=== PATIENT | female | born 1990 | race African-American/Black ===

== ENCOUNTER 2017-01-26 09:40 | Inpatient (IN) | payer MEDICAID, OTHER ==
[~2017-01-26] VITALS: Ht 162.6 cm; Wt 50.3 kg
[~2017-01-26 09:40] MED LIST: DEPO SHOT
[2017-01-26] MEDS ORDERED: LORazepam 2 MG/ML VIAL ONE (09:47)
[2017-01-26] MEDS ORDERED: DiphenhydrAMINE HCL 50 MG/ML VIAL ONE (09:47)
[2017-01-26] MEDS ORDERED: HALOPERIDOL LACTATE 5 MG/ML VIAL ONE (09:47)
[2017-01-26 09:58] LABS: EOSINOPHILS % (AUTO) 0.02 % (1.0-6.0); HEMATOCRIT 36.1 % (36-46); HEMOGLOBIN 12.3 g/dL (12.0-16.0); LYMPHOCYTES # (AUTO) 0.7 K/uL (1.0-4.8); LYMPHOCYTES % (AUTO) 5.2 % (22.0-44.0); MEAN CORPUSCULAR HEMOGLOBIN 28.2 pg (26.0-34.0); MEAN CORPUSCULAR VOLUME 83 fL (80-100); MONOCYTES # (AUTO) 0.7 K/uL (0.1-1.0); NEUTROPHILS # (AUTO) 11.9 K/uL (1.8-7.7); PLATELET COUNT (AUTO) 267 K/uL (150-450); RED BLOOD CELL COUNT(AUTO) 4.36 MIL/uL (4.00-5.20); RED CELL DISTRIBUTION WIDTH 12.9 % (11.5-14.5); WHITE BLOOD COUNT (AUTO) 13.3 K/uL (4.5-11.0)
[2017-01-26 10:00] LABS: NEUTROPHILS % (AUTO) 89.7 % (40.0-70.0)
[2017-01-26 10:11] LABS: ANION GAP 16 mmol/L (8-16); CALCIUM, TOTAL 9.6 mg/dL (8.8-10.5); CARBON DIOXIDE 23 mmol/L (22-29); CHLORIDE 103 mmol/L (98-107); CREATININE 1.12 mg/dL (0.60-1.30); GLOMERULAR FILTR. RATE CALC > 60 mL/min (>60); POTASSIUM 3.4 mmol/L (3.5-5.1); SODIUM SERUM 142 mmol/L (136-145); UREA NITROGEN, BLOOD 10 mg/dL (7-18)
[2017-01-26 10:16] LABS: ALANINE AMINOTRANSFERASE 23 U/L (12-78); ALBUMIN 4.4 g/dL (3.4-5.0); ASPARTATE AMINOTRANSFERASE 33 U/L (15-37); BILIRUBIN,TOTAL 0.6 mg/dL (0.1-1.0); TOTAL PROTEIN, SERUM 8.1 g/dL (6.4-8.2)
[2017-01-26] MEDS ORDERED: DiphenhydrAMINE HCL 50 MG/ML VIAL IM ONE (10:30)
[2017-01-26] MEDS ORDERED: HALOPERIDOL LACTATE 5 MG/ML VIAL IM ONE (10:30)
[2017-01-26] MEDS ORDERED: LORazepam 2 MG/ML VIAL IM ONE (10:30)
[2017-01-26] MEDS ORDERED: SODIUM CHLORIDE 0.9% 250 ML IRRIG SOLUTION BOTTLE IRRIG ONE (11:45)
[2017-01-26] MEDS ORDERED: PERTUSS(ACELL),DIPH,TET VAC/PF 0.5 ML VIAL IM ONE (11:45)
[2017-01-26 16:17] VITALS: BP 126/80
[2017-01-26] MEDS ORDERED: POTASSIUM CHLORIDE 20 MEQ ER TABLET PO ONE (17:00)
[2017-01-27 06:21] VITALS: BP 110/62
[2017-01-27 07:15] LABS: BASOPHILS # (AUTO) 0.01 K/uL (0.00-0.20); BASOPHILS % (AUTO) 0.1 % (0.0-2.0); EOSINOPHILS # (AUTO) 0.03 K/uL (0.00-0.70); EOSINOPHILS % (AUTO) 0.27 % (1.0-6.0); HEMOGLOBIN 13.5 g/dL (12.0-16.0); LYMPHOCYTES # (AUTO) 1.4 K/uL (1.0-4.8); LYMPHOCYTES % (AUTO) 12.6 % (22.0-44.0); MEAN CORPUSCULAR HEMOGLOBIN 27.7 pg (26.0-34.0); MEAN CORPUSCULAR HGB CONC 32.9 G/dL (31.0-37.0); MEAN CORPUSCULAR VOLUME 84 fL (80-100); MONOCYTES # (AUTO) 0.7 K/uL (0.1-1.0); MONOCYTES % (AUTO) 5.7 % (2.0-9.0); NEUTROPHILS # (AUTO) 9.2 K/uL (1.8-7.7); NEUTROPHILS % (AUTO) 81.3 % (40.0-70.0); PLATELET COUNT (AUTO) 281 K/uL (150-450); RED BLOOD CELL COUNT(AUTO) 4.88 MIL/uL (4.00-5.20); RED CELL DISTRIBUTION WIDTH 12.4 % (11.5-14.5); WHITE BLOOD COUNT (AUTO) 11.3 K/uL (4.5-11.0)
[2017-01-27] MEDS: LORazepam 2 MG TABLET PO PRN ×2 (08:39→16:50)
[2017-01-27] MEDS: HALOPERIDOL 5 MG TABLET PO PRN (08:41)
[2017-01-27 08:49] VITALS: BP 95/53
[2017-01-27] MEDS: DIVALPROEX SODIUM 500 MG DR TABLET PO SCH ×2 (11:43→16:50)
[2017-01-27] MEDS: RisperiDONE 1 MG TABLET PO SCH ×2 (11:43→16:50)
[2017-01-27 16:26] VITALS: BP 109/69
[2017-01-28 06:33] VITALS: BP 117/65
[2017-01-28 08:02] VITALS: BP 121/64
[2017-01-28] MEDS: RisperiDONE 1 MG TABLET PO SCH ×2 (09:00→17:00)
[2017-01-28] MEDS: DIVALPROEX SODIUM 500 MG DR TABLET PO SCH ×2 (09:35→16:07)
[2017-01-28] MEDS ORDERED: INFLUENZA VIRUS VACCINE QVS 2016-17 (3YR+)/PF 60 MCG/0.5 ML SYRINGE IM ONE (15:15)
[2017-01-28] MEDS: LORazepam 2 MG TABLET PO PRN (16:07)
[2017-01-28 16:13] VITALS: BP 132/72
[2017-01-28] MEDS: HALOPERIDOL 5 MG TABLET PO PRN (18:29)
[2017-01-29 00:30] VITALS: BP 123/93
[2017-01-29] MEDS: ZOLPIDEM TARTRATE 10 MG TABLET PO PRN (00:36)
[2017-01-29 08:37] VITALS: BP 140/87
[2017-01-29] MEDS: HALOPERIDOL 5 MG TABLET PO PRN (08:52)
[2017-01-29] MEDS: LORazepam 2 MG TABLET PO PRN ×2 (08:52→16:05)
[2017-01-29] MEDS: DIVALPROEX SODIUM 500 MG DR TABLET PO SCH ×2 (08:52→16:05)
[2017-01-29] MEDS: RisperiDONE 1 MG TABLET PO SCH ×2 (08:52→17:00)
[2017-01-29 16:31] VITALS: BP 108/75
[2017-01-29] MEDS ORDERED: DiphenhydrAMINE HCL 50 MG/ML VIAL IM ONE (18:15)
[2017-01-30 00:08] VITALS: BP 148/86
[2017-01-30] MEDS: ZOLPIDEM TARTRATE 10 MG TABLET PO PRN ×2 (00:13→21:02)
[2017-01-30] MEDS: LORazepam 2 MG TABLET PO PRN ×3 (00:28→16:00)
[2017-01-30 08:00] VITALS: BP 146/88
[2017-01-30] MEDS: DIVALPROEX SODIUM 500 MG DR TABLET PO SCH ×2 (08:32→16:00)
[2017-01-30 08:34] LABS: VALPROIC ACID 102 mcg/mL (50-100)
[2017-01-30] MEDS: RisperiDONE 1 MG TABLET PO SCH ×2 (08:37→17:00)
[2017-01-30 09:20] LABS: LITHIUM < 0.20 mmol/L (0.60-1.20)
[2017-01-30 16:13] VITALS: BP 108/67
[2017-01-31 00:02] VITALS: BP 119/90
[2017-01-31] MEDS: LORazepam 2 MG TABLET PO PRN ×2 (00:03→09:43)
[2017-01-31 08:16] VITALS: BP 119/63
[2017-01-31] MEDS: RisperiDONE 1 MG TABLET PO SCH (09:00)
[2017-01-31] MEDS: DIVALPROEX SODIUM 500 MG DR TABLET PO SCH (09:43)
[2017-01-31] MEDS: HALOPERIDOL 5 MG TABLET PO PRN (09:43)
[2017-01-31] MEDS ORDERED: DIVA500T35 PO (15:04)
[2017-01-31] MEDS ORDERED: RISP1 PO (15:04)
== END 2017-01-31 15:00 | disposition home or self-care (01) | DRG 750 ==
LOC: EMS 09:42 → B3A 12:59
PROVIDERS: ADMIT Psychiatry & Neurology Psychiatry; ATTEND Psychiatry & Neurology Psychiatry
DX: F25.9 Schizoaffective disorder, unspecified (principal); Z78.1 Physical restraint status; F20.0 Paranoid schizophrenia; E87.6 Hypokalemia; S61.412A Laceration without foreign body of left hand, initial encounter; D72.829 Elevated white blood cell count, unspecified; F99 Mental disorder, not otherwise specified; R00.0 Tachycardia, unspecified; X58.XXXA Exposure to other specified factors, initial encounter; F11.90 Opioid use, unspecified, uncomplicated; Z28.21 Immunization not carried out because of patient refusal; Z88.0 Allergy status to penicillin; Z79.899 Other long term (current) drug therapy; Y93.89 Activity, other specified; Y92.89 Other specified places as the place of occurrence of the external cause; Y99.8 Other external cause status
CPT/HCPCS: 51701; 84132; 90471; 90715; 96372; 99285; G0480; J1200; J1630; J2060